=== PATIENT | male | born 1990 | race Caucasian/White ===

== ENCOUNTER 2016-07-27 21:06 | Emergency (ER) | payer OTHER ==
[2016-07-27 21:31] VITALS: PULSE 90; RESP 18
--- NOTE | 2016-07-27 22:15 | EDPHY ---
H & P Stated Complaint: cough sore throat congestion x 2 weeks Time Seen by Provider: 07/27/16 21:57 HPI/ROS: CHIEF COMPLAINT: URI symptoms x2 weeks HISTORY OF PRESENT ILLNESS: 26-year-old immunocompetent male nontobacco smoker , complaining of 2 weeks of sore throat, productive cough, rhinorrhea. Denies: Nuchal rigidity, influenza vaccination, otalgia, adenopathy, chest pain, back pain, abdominal pain, nausea, vomiting PRIMARY CARE PROVIDER: REVIEW OF SYSTEMS: A ten point review of systems was performed and is negative with the exception of the items mentioned in the HPI PAST MEDICAL & SURGICAL HISTORY: No pertinent medical or surgical history SOCIAL HISTORY: Positive for marijuana use. Negative for tobacco smoking PHYSICAL EXAM (Prior to examination, patient consented to physical exam, hands were washed and my usual and customary physical exam procedures followed) 1) GENERAL: Well-developed, well-nourished, alert and oriented. Appears nontoxic . 2) HEAD: Normocephalic, atraumatic 3) HEENT: Pupils equal, round, reactive to light bilaterally. Sclera anicteric. Nasopharynx, oropharynx, clear, no lesions. No tonsillar enlargement or tonsillar exudate. Ears bilaterally with normal tympanic membranes. 4) NECK: Full range of motion, no meningeal signs. 5) LUNGS: Clear auscultation bilaterally, no wheezes, no rhonchi, no retractions. 6) HEART: Regular rate and rhythm, no murmur, no heave, no gallop. 7) ABDOMEN: No guarding, no rebound, no focal tenderness, negative McBurney's, negative Rabago's, negative Rovsing's, negative peritoneal sign, 8) MUSCULOSKELETAL: Moving all extremities, no focal areas of tenderness, no obvious trauma. No peripheral edema or discoloration. 9) BACK: No CVA tenderness 10) SKIN: No rash, no petechiae. 11) Psychiatric: Patient is oriented X 3, there is no agitation. DIFFERENTIAL DIAGNOSIS: no particular include but limited to influenza, strep pharyngitis, pneumonia, bronchitis - Personal History Current Tetanus/Diphtheria Vaccine: Yes Current Tetanus Diphtheria and Acellular Pertussis (TDAP): Yes - Medical/Surgical History Hx Asthma: No Hx Chronic Respiratory Disease: No Hx Diabetes: No Hx Cardiac Disease: No Hx Renal Disease: No Hx Cirrhosis: No Hx Alcoholism: No Hx HIV/AIDS: No Hx Splenectomy or Spleen Trauma: No Other PMH: ADDH - Social History Smoking Status: Current some day smoker Constitutional: Initial Vital Signs Temperature (C) 36.6 C 07/27/16 21:27 Heart Rate 90 07/27/16 21:27 Respiratory Rate 18 07/27/16 21:27 Blood Pressure 135/72 H 07/27/16 21:27 O2 Sat (%) 95 07/27/16 21:27 O2 Delivery Mode Room Air Allergies/Adverse Reactions: No Known Allergies Allergy (Unverified 04/12/16 12:00) Home Medications: Medication Instructions Recorded Adderall 20 mg (*) 04/12/16 AZITHROMYCIN [Z-PACK] 500 mg PO DAILY #1 packet 07/27/16 Albuterol [Proventil Inhaler HFA 1 - 2 puffs IH Q4PRN PRN #1 mdi 07/27/16 (*)] Benzonatate [Tessalon Pearles (RX)] 200 mg PO TID PRN #15 cap 07/27/16 Medical Decision Making ED Course/Re-evaluation: Re-evaluation with serial exams. influenza and strep tests are negative. His lungs are clear bilaterally, maintain normal saturations. Do not think that chest imaging currently indicated. I do think a trial of antibiotics is appropriate given the longevity of his symptoms, namely 2 weeks. He will be discharged with azithromycin, albuterol, Tessalon Perles. Given usual and customary URI discharge precautions and instructions. He feels comfortable being discharged. - Data Points Laboratory Results: 07/27/16 07/27/16 07/27/16 Unknown 22:00 22:00 Influenza Typ A,B (DFA) NEGATIVE FOR FLU (NEGATIVE) Group A Strep Screen NEGATIVE (NEGATIVE) Group A Strep DNA Pending Departure - Departure Disposition: Home, Routine, Self-Care Clinical Impression: Upper respiratory infection Condition: Good Instructions: Upper Respiratory Infection (ED) Additional Instructions: Return to the emergency department immediately for change in breathing habits, change in voice, change in swallowing habits, change in mental status, or any other symptoms that concern you. Referrals: [facility],. [Clinic] - 1-2 days without fail Prescriptions: Albuterol [Proventil Inhaler HFA (*)] 1 - 2 puffs IH Q4PRN PRN #1 mdi PRN Reason: Cough, Moderate AZITHROMYCIN [Z-PACK] 500 mg PO DAILY #1 packet Benzonatate [Tessalon Pearles (RX)] 200 mg PO TID PRN #15 cap PRN Reason: Cough, Moderate
[2016-07-27 23:05] VITALS: BP 137/75; TEMP 98.4; O2SAT 94
== END 2016-07-27 23:04 | disposition home or self-care (01) ==
DX: J06.9 Acute upper respiratory infection, unspecified (principal); F17.200 Nicotine dependence, unspecified, uncomplicated